=== PATIENT | female | born 1955 | race Two or more races ===

== ENCOUNTER 2017-11-17 13:34 | Inpatient (IN) | payer MEDICARE, OTHER ==
[~2017-11-17] VITALS: Ht 160 cm; Wt 63.5 kg
[2017-11-17 17:00] VITALS: BP 117/67
[2017-11-17] MEDS ORDERED: MAG HYDROX/AL HYDROX/SIMETH 30 ML UDC PO PRN (17:00)
[2017-11-17] MEDS ORDERED: MAGNESIUM HYDROXIDE 30 ML UDC PO PRN (17:00)
[2017-11-17] MEDS ORDERED: FLUP2.5T PO (17:20)
[2017-11-17] MEDS ORDERED: BENZ1TAB7 PO (17:20)
[2017-11-17 19:42] VITALS: BP 106/61
[2017-11-18] MEDS: ACETAMINOPHEN 325 MG TABLET PO PRN ×2 (04:18→21:14)
[2017-11-18 08:00] VITALS: BP 129/67
[2017-11-18] MEDS: LORAZEPAM 0.5 MG TABLET PO PRN ×2 (08:48→17:29)
[2017-11-18] MEDS: FLUPHENAZINE HCL 10 MG TABLET PO SCH ×2 (12:15→20:50)
[2017-11-18] MEDS: BENZTROPINE MESYLATE (1 MG) 1 MG TABLET PO SCH ×2 (12:15→20:50)
[2017-11-18] MEDS: LITHIUM CARBONATE 150 MG CAPSULE PO SCH ×2 (12:15→16:26)
[2017-11-18 13:22] LABS: THYROID STIMULATING HORMONE 0.741 uIU/mL (0.358-3.74)
[2017-11-18 16:07] VITALS: BP 129/78
[2017-11-18] MEDS: ZOLPIDEM TARTRATE 10 MG TABLET PO PRN (21:29)
[2017-11-19] MEDS: ACETAMINOPHEN 325 MG TABLET PO PRN ×2 (04:04→22:18)
[2017-11-19 07:21] LABS: BASOPHILS # (AUTO) 0.1 /CMM (0.0-0.2); BASOPHILS % (AUTO) 0.7 % (0.0-2.0); EOSINOPHILS # (AUTO) 0.3 /CMM (0.0-0.7); EOSINOPHILS % (AUTO) 3.5 % (0.0-6.0); HEMATOCRIT 38 % (33-45); HEMOGLOBIN 12.6 g/dL (11.5-14.8); LYMPHOCYTES # (AUTO) 2.2 /CMM (0.8-4.8); LYMPHOCYTES % (AUTO) 30.1 % (20.0-44.0); MEAN CORPUSCULAR HEMOGLOBIN 30 PG (26.0-33.0); MEAN CORPUSCULAR HGB CONC 34 g/dl (31.0-36.0); MEAN CORPUSCULAR VOLUME 90 fL (82-100); MONOCYTES # (AUTO) 0.5 /CMM (0.1-1.30); MONOCYTES % (AUTO) 6.7 % (2.0-12.0); NEUTROPHILS # (AUTO) 4.3 /CMM (1.8-8.9); PLATELET COUNT (AUTO) 168 /CMM (150-450); RDW COEFFICIENT OF VARIATION 13.8 (11.5-15.0); RED BLOOD CELL COUNT(AUTO) 4.19 MIL/uL (4.0-5.2); WHITE BLOOD COUNT (AUTO) 7.3 K/uL (4.3-11.0)
[2017-11-19 07:32] LABS: ALBUMIN 3.3 g/dL (3.4-5.0); BILIRUBIN,TOTAL 0.4 mg/dL (0.2-1.0); CALCIUM, SERUM 8.8 mg/dL (8.5-10.1); CREATININE 0.6 mg/dL (0.6-1.3); POTASSIUM 3.8 mmol/L (3.5-5.1)
[2017-11-19 08:00] VITALS: BP 115/76
[2017-11-19] MEDS: FLUPHENAZINE HCL 10 MG TABLET PO SCH ×2 (08:16→20:20)
[2017-11-19] MEDS: BENZTROPINE MESYLATE (1 MG) 1 MG TABLET PO SCH ×2 (08:16→20:20)
[2017-11-19] MEDS: LITHIUM CARBONATE 150 MG CAPSULE PO SCH ×2 (08:16→17:50)
[2017-11-19 16:08] VITALS: BP 130/74
[2017-11-19] MEDS: LORAZEPAM 0.5 MG TABLET PO PRN (18:03)
[2017-11-19 19:54] VITALS: BP 116/73
[2017-11-19] MEDS: ZOLPIDEM TARTRATE 10 MG TABLET PO PRN (21:44)
[2017-11-20 08:00] VITALS: BP 127/80
[2017-11-20] MEDS: NICOTINE PATCH (14MG) 14 MG PATCH.TD24 TD SCH (08:37)
[2017-11-20] MEDS: FLUPHENAZINE HCL 10 MG TABLET PO SCH ×3 (08:37→21:47)
[2017-11-20] MEDS: BENZTROPINE MESYLATE (1 MG) 1 MG TABLET PO SCH ×2 (08:37→21:09)
[2017-11-20] MEDS: LITHIUM CARBONATE 150 MG CAPSULE PO SCH ×2 (08:37→16:29)
[2017-11-20] MEDS: LORAZEPAM 0.5 MG TABLET PO PRN (13:46)
[2017-11-20 16:00] VITALS: BP 121/78
[2017-11-20 20:00] VITALS: BP 103/65
[2017-11-20] MEDS: ZOLPIDEM TARTRATE 10 MG TABLET PO PRN (21:48)
[2017-11-21] MEDS: ACETAMINOPHEN 325 MG TABLET PO PRN (03:22)
[2017-11-21 08:22] VITALS: BP 120/73
[2017-11-21] MEDS: LITHIUM CARBONATE 150 MG CAPSULE PO SCH ×2 (08:33→16:16)
[2017-11-21] MEDS: NICOTINE PATCH (14MG) 14 MG PATCH.TD24 TD SCH (08:33)
[2017-11-21] MEDS: BENZTROPINE MESYLATE (1 MG) 1 MG TABLET PO SCH ×2 (08:33→22:05)
[2017-11-21] MEDS: FLUPHENAZINE HCL 10 MG TABLET PO SCH ×3 (08:33→22:05)
[2017-11-21 15:13] VITALS: BP 105/67
[2017-11-21 20:00] VITALS: BP 102/67
[2017-11-21] MEDS: LORAZEPAM 0.5 MG TABLET PO PRN (22:06)
[2017-11-22 08:00] VITALS: BP 127/74
[2017-11-22] MEDS: BENZTROPINE MESYLATE (1 MG) 1 MG TABLET PO SCH ×2 (09:07→21:48)
[2017-11-22] MEDS: NICOTINE PATCH (14MG) 14 MG PATCH.TD24 TD SCH (09:07)
[2017-11-22] MEDS: LITHIUM CARBONATE 150 MG CAPSULE PO SCH ×2 (09:07→16:23)
[2017-11-22] MEDS: FLUPHENAZINE HCL 10 MG TABLET PO SCH ×3 (09:08→21:48)
[2017-11-22] MEDS: LORAZEPAM 0.5 MG TABLET PO PRN ×2 (11:16→19:37)
[2017-11-22 16:00] VITALS: BP 99/59
[2017-11-22 20:00] VITALS: BP 115/62
[2017-11-22] MEDS: ZOLPIDEM TARTRATE 10 MG TABLET PO PRN (21:48)
[2017-11-23 08:00] VITALS: BP 116/78
[2017-11-23] MEDS: FLUPHENAZINE HCL 10 MG TABLET PO SCH ×3 (08:17→21:35)
[2017-11-23] MEDS: NICOTINE PATCH (14MG) 14 MG PATCH.TD24 TD SCH (08:17)
[2017-11-23] MEDS: LITHIUM CARBONATE 150 MG CAPSULE PO SCH ×2 (08:17→16:34)
[2017-11-23] MEDS: BENZTROPINE MESYLATE (1 MG) 1 MG TABLET PO SCH ×2 (08:28→21:36)
[2017-11-23] MEDS: ACETAMINOPHEN 325 MG TABLET PO PRN (12:54)
[2017-11-23] MEDS: LORAZEPAM 0.5 MG TABLET PO PRN ×2 (12:55→19:39)
[2017-11-23 16:00] VITALS: BP 119/74
[2017-11-23 20:07] VITALS: BP 113/68
[2017-11-23] MEDS: ZOLPIDEM TARTRATE 10 MG TABLET PO PRN (21:36)
[2017-11-24 08:00] VITALS: BP 112/62
[2017-11-24] MEDS: FLUPHENAZINE HCL 10 MG TABLET PO SCH ×3 (08:32→21:51)
[2017-11-24] MEDS: NICOTINE PATCH (14MG) 14 MG PATCH.TD24 TD SCH (08:32)
[2017-11-24] MEDS: LITHIUM CARBONATE 150 MG CAPSULE PO SCH ×2 (08:32→16:16)
[2017-11-24] MEDS: BENZTROPINE MESYLATE (1 MG) 1 MG TABLET PO SCH ×2 (08:51→21:51)
[2017-11-24] MEDS: LORAZEPAM 0.5 MG TABLET PO PRN ×2 (09:54→17:54)
[2017-11-24 16:00] VITALS: BP 117/70
[2017-11-24 19:37] VITALS: BP 102/42
[2017-11-24] MEDS: ZOLPIDEM TARTRATE 10 MG TABLET PO PRN (22:00)
[2017-11-25 08:00] VITALS: BP 119/69
[2017-11-25] MEDS: FLUPHENAZINE HCL 10 MG TABLET PO SCH ×3 (09:43→20:58)
[2017-11-25] MEDS: LITHIUM CARBONATE 150 MG CAPSULE PO SCH ×2 (09:43→17:00)
[2017-11-25] MEDS: BENZTROPINE MESYLATE (1 MG) 1 MG TABLET PO SCH ×2 (09:43→20:58)
[2017-11-25] MEDS: NICOTINE PATCH (14MG) 14 MG PATCH.TD24 TD SCH (09:47)
[2017-11-25] MEDS: LORAZEPAM 0.5 MG TABLET PO PRN ×2 (11:26→20:58)
[2017-11-25] MEDS: NEOMY SULF/BACITRAC ZN/POLY 15 GM TUBE TP SCH (13:30)
[2017-11-25 16:00] VITALS: BP 128/92
[2017-11-25 20:00] VITALS: BP 125/76
[2017-11-26 08:00] VITALS: BP 120/66
[2017-11-26] MEDS: NEOMY SULF/BACITRAC ZN/POLY 15 GM TUBE TP SCH (09:00)
[2017-11-26] MEDS: NICOTINE PATCH (14MG) 14 MG PATCH.TD24 TD SCH (09:48)
[2017-11-26] MEDS: LITHIUM CARBONATE 150 MG CAPSULE PO SCH (09:48)
[2017-11-26] MEDS: BENZTROPINE MESYLATE (1 MG) 1 MG TABLET PO SCH (09:48)
[2017-11-26] MEDS: FLUPHENAZINE HCL 10 MG TABLET PO SCH (09:48)
== END 2017-11-26 11:45 | disposition home or self-care (01) | DRG 885 ==
LOC: GPS 16:38
PROVIDERS: ADMIT Psychiatry & Neurology Psychiatry; ATTEND Psychiatry & Neurology Psychiatry
DX: F25.0 Schizoaffective disorder, bipolar type (principal); F19.10 Other psychoactive substance abuse, uncomplicated; F41.9 Anxiety disorder, unspecified; J44.9 Chronic obstructive pulmonary disease, unspecified; I25.10 Atherosclerotic heart disease of native coronary artery without angina pectoris; I25.2 Old myocardial infarction; S61.512A Laceration without foreign body of left wrist, initial encounter; Y28.9XXA Contact with unspecified sharp object, undetermined intent, initial encounter; Y92.9 Unspecified place or not applicable; Z73.6 Limitation of activities due to disability
CPT/HCPCS: 36415; 80053-TC; 80061-TC; 84439-TC; 84443-TC; 84481; 85025-TC; 87081-TC